=== PATIENT | female | born 1985 | race Caucasian/White ===

== ENCOUNTER 2022-10-26 01:36 | Inpatient (IN) | payer BC, MEDICAID, SELFPAY ==
[2022-10-26] VITALS (24 sets, daily range): BP systolic 113–176; BP diastolic 47–108; PULSE 59–91; RESP 16–18; TEMP 36.3–36.8; O2SAT 97–99; BMI 20.4; BMI 21.2
--- NOTE | 2022-10-26 01:46 | ED.GENADULT ---
HPI - General Adult General Chief complaint: Post OB/Post- Complication Stated complaint: Post elevated bp Time Seen by Provider: 10/26/22 01:45 History of Present Illness HPI narrative: Pt aox4, ABCs intact. Patient arrives with significant other for evaluation of high blood pressure. Patient is 7 days from a vaginal delivery of her second child. Patient c/o headache and high blood pressure tonight. Patient currently taking labetalol. 37-year-old woman presenting to the emergency department with concern of rather high blood pressure. induced with this last at 39 weeks with preeclampsia. Has been taking labetalol. 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 Does have slight headache. 200 mg of labetalol was taken 3 hours prior to arrival here. No visual changes. No chest pain or shortness of breath. Related Data Home Medications Medication Instructions Recorded Confirmed labetalol 200 mg tablet 200 mg PO .8 10/26/22 10/26/22 Allergies Allergy/AdvReac Type Severity Reaction Status Date / Time doxycycline Allergy Verified 10/27/22 07:18 Review of Systems Status of ROS: Reports: 6 or more systems reviewed and unremarkable except as noted in History and below PFSH [facility] Social History What is your current living situation?: I presently have a place to live Problems where you live: no known problems In the past 12 months, utilities in danger of being shut off: no In the past 12 mos, have been you worried that your food would run out before you had money to buy more?: never true In the past 12 mos, the food you bought just didn't last and you didn't have money to buy more?: never true Smoking Status: Never smoker How often does anyone, including family, friends and others, physically hurt you: never How often does anyone, including family, friends and others, insult or talk down to you: never How often does anyone, including family, friends and others, threaten you with harm: never How often does anyone, including family, friends and others, scream or curse at you: never Exam Narrative: Exam Narrative: Very pleasant. NAD. Breathing easily. Mentally clear. Lungs clear. Heart in mildly elevated rate in a regular rhythm. No peripheral edema. 2+ DTRs No clonus Abdomen soft and not particularly tender. Accompanied by significant other and . Const: Vital Signs, click to edit/add: Vital Signs - 24 hr 10/26/22 01:41 10/26/22 02:34 Temperature 98.3 F Pulse Rate [Pulse Oximeter] 91 Respiratory Rate 16 Blood Pressure [Ri ght Upper Arm] 170/99 H 176/105 H Pulse Oximetry 99 Oxygen Delivery Me thod Room Air Documenting provider has reviewed patient's vital signs: yes Course Vital Signs Vital signs: Initial Vital Signs Temperature 98.3 F 10/26/22 01:41 Temperature Source Temporal Artery Scan 10/26/22 01:41 Pulse Rate 91 10/26/22 01:41 Pulse Rhythm Regular 10/26/22 01:41 Respiratory Rate 16 10/26/22 01:41 Blood Pressure 170/99 H 10/26/22 01:41 Blood Pressure Mean 122 H 10/26/22 01:41 Pulse Oximetry 99 10/26/22 01:41 Oxygen Delivery Method Room Air 10/26/22 01:41 Vital Signs Temperature 98.3 F 10/26/22 01:41 Pulse Rate 91 10/26/22 01:41 Respiratory Rate 16 10/26/22 01:41 Blood Pressure 170/99 H 10/26/22 01:41 Pulse Oximetry 99 10/26/22 01:41 Oxygen Delivery Method Room Air 10/26/22 01:41 Temperature 97.4 F L 10/29/22 07:47 Pulse Rate 73 10/29/22 07:47 Respiratory Rate 17 10/29/22 07:47 Blood Pressure 142/87 H 10/29/22 08:40 Pulse Oximetry 97 10/29/22 00:10 Oxygen Delivery Method Room Air 10/29/22 04:00 Medical Decision Making MDM Narrative Medical decision making narrative: Rechecking blood pressures confirmed. Seemed actually be escalating. 170s over 90s. Labs drawn for preeclampsia and ordered for 20 mg of labetalol IV. Called to Ob discuss this case. OB nursing already arrived to assist and anticipating transfer shortly to OB for admission and cares. Will be initiating magnesium infusion per protocols as well. Lab Data Lab results reviewed: Yes I reviewed the patient's lab results Labs: Lab Results 10/26/22 10/26/22 Range/Units 02:35 03:05 WBC 6.53 (4.50-11.00) K/uL RBC 3.63 L (4.00-5.20) m/uL Hgb 10.6 L (12.0-16.0) gm/dL Hct 32.5 L (33.0-51.0) % MCV 90 (80-100) fL MCH 29 (26-34) pg MCHC 33 (32-36) gm/dL RDW Coeff of [place] 17.1 H (11.5-15.5) % Plt Count 149 (140-440) K/uL Neut % (Auto) 70.6 (42.0-72.0) % Lymph % (Auto) 19.9 L (20-44) % [place] % (Auto) 6.3 (0.0-11.0) % Eos % (Auto) 1.2 (0.0-7.0) % Baso % (Auto) 0.8 (0.0-3.0) % Neut # (Auto) 4.61 (1.7-7.0) K/uL Lymph # (Auto) 1.30 (0.90-2.90) K/uL [place] # (Auto) 0.40 (0.00-0.90) K/UL Eos # (Auto) 0.08 (0.00-0.50) K/uL Baso # (Auto) 0.05 (0.00-0.30) K/uL Abs Immat Gran (auto) 0.08 (0.00-0.30) K/uL Imm/Tot Granulo (auto) 1.2 % Sodium 138 (135-149) mmol/L Potassium 3.7 (3.6-5.1) mmol/L Chloride 110 (96-114) mmol/L Carbon Dioxide 22 (20-32) mmol/L Anion Gap 6 L (7-15) mEq/L BUN 16 (5-24) mg/dL Creatinine 0.8 (0.5-1.5) mg/dL Estimated Creat Clear 88.76 Estimated GFR 97 ml/min Glucose 90 (60-115) mg/dL Uric Acid 3.3 (2.2-8.4) mg/dL Calcium 8.0 L (8.4-10.6) mg/dL Magnesium 2.2 (1.5-2.6) mg/dL Total Bilirubin 0.3 (0.1-1.5) mg/dL Direct Bilirubin 0.0 (0.0-0.5) mg/dL AST 74 H (12-35) U/L ALT 102 H (4-35) U/L Alkaline Phosphatase 103 (40-150) U/L Lactate Dehydrogenase 218 (120-246) U/L Total Protein 6.1 (6.0-8.3) g/dL Albumin 3.3 (3.3-5.0) g/dL Urine Color Yellow (Yellow) Urine Appearance Cloudy A (Clear) Urine pH 7.5 (5.0-8.5) Ur Specific [place] 1.020 (1.000-1.030) Urine Protein 1+ A (Negative) Urine Glucose (UA) Negative (Negative) Urine Ketones Negative (Negative) Urine Blood 3+ A (Negative) Urine Nitrite Negative (Negative) Urine Bilirubin Negative (Negative) Urine Urobilinogen 1.0 (0.2-1.0) Ur Leukocyte Esterase Negative (Negative) Urine RBC 10-25 A (0-2) Urine WBC 0-2 (0-5) Ur Squamous Epith Cells Few (None-Few) Urine Bacteria None (None) Discharge Plan Discharge Clinical Impression: Pre-eclampsia Patient Disposition: Admit to OB Condition: Stable
[2022-10-26 02:43] LABS: Appearance Urine Cloudy (Clear); Bilirubin Urine Negative (Negative); Blood Urine 3+ (Negative); Color Urine Yellow (Yellow); Glucose Urine Negative (Negative); Ketones Urine Negative (Negative); Leukocyte Esterase Urine Negative (Negative); Nitrite Urine Negative (Negative); Protein Urine 1+ (Negative); pH Urine 7.5 (5.0-8.5)
[2022-10-26 02:52] LABS: Squamous Epithelial Cell Urine Few (None-Few); WBC Urine 0-2 (0-5)
[2022-10-26] MEDS: LABETALOL HCL 5 MG/ML inj 20 MG IVP (03:12)
[2022-10-26] MEDS: LACTATED RINGERS 1000 ML 1,000 ML 75 ML IV ×2 (03:12→16:27)
[2022-10-26 03:13] LABS: Basophils Absolute Auto 0.05 K/uL (0.00-0.30); Basophils Percent Auto 0.8 % (0.0-3.0); Eosinophils Absolute Auto 0.08 K/uL (0.00-0.50); Eosinophils Percent Auto 1.2 % (0.0-7.0); Hematocrit 32.5 % (33.0-51.0); Hemoglobin* 10.6 gm/dL (12.0-16.0); Immature Granulocytes Abs Auto 0.08 K/uL (0.00-0.30); Immature Granulocytes Pct Auto 1.2 %; Lymphocytes Percent Auto 19.9 % (20-44); Mean Corpuscular HGB Conc 33 gm/dL (32-36); Mean Corpuscular Hemoglobin 29 pg (26-34); Mean Corpuscular Volume 90 fL (80-100); Monocytes Percent Auto 6.3 % (0.0-11.0); Neutrophils Absolute Auto 4.61 K/uL (1.7-7.0); Neutrophils Percent Auto 70.6 % (42.0-72.0); Platelet Count* 149 K/uL (140-440); RDW Coefficient of Variation % 17.1 % (11.5-15.5); Red Blood Count 3.63 m/uL (4.00-5.20); White Blood Count* 6.53 K/uL (4.50-11.00)
[2022-10-26 03:15] LABS: Slide Review Reflex No
--- NOTE | 2022-10-26 03:17 | ED.NURSE ---
OB RNs to ED to assist with medication administraion as well as IV placement. Patient transferred to [facility] for admission
[2022-10-26 03:27] LABS: Albumin* 3.3 g/dL (3.3-5.0); Chloride* 110 mmol/L (96-114)
[2022-10-26 03:28] LABS: Potassium* 3.7 mmol/L (3.6-5.1); Sodium* 138 mmol/L (135-149)
[2022-10-26 03:29] LABS: Lactate Dehydrogenase* 218 U/L (120-246); Uric Acid* 3.3 mg/dL (2.2-8.4)
[2022-10-26 03:30] LABS: Anion Gap 6 mEq/L (7-15); Aspartate Amino Transferase* 74 U/L (12-35); Bilirubin Total* 0.3 mg/dL (0.1-1.5); Blood Urea Nitrogen* 16 mg/dL (5-24); Carbon Dioxide* 22 mmol/L (20-32); Creatinine* 0.8 mg/dL (0.5-1.5); Est. Creatinine Clearance* 88.76; Estimated Glomerular Filt Rate 97 ml/min; Magnesium* 2.2 mg/dL (1.5-2.6); Total Protein* 6.1 g/dL (6.0-8.3)
[2022-10-26 03:31] LABS: Alanine Aminotransferase* 102 U/L (4-35); Alkaline Phosphatase* 103 U/L (40-150); Glucose* 90 mg/dL (60-115)
[2022-10-26] MEDS: MAGNESIUM IV 4 GM/100 ML PIGGYBACK IVPB (03:35)
[2022-10-26 08:51] LABS: Hematocrit 37.1 % (33.0-51.0); Hemoglobin* 11.9 gm/dL (12.0-16.0); Mean Corpuscular HGB Conc 32 gm/dL (32-36); Mean Corpuscular Hemoglobin 29 pg (26-34); Mean Corpuscular Volume 89 fL (80-100); Platelet Count* 186 K/uL (140-440); Red Blood Count 4.16 m/uL (4.00-5.20); White Blood Count* 6.33 K/uL (4.50-11.00)
[2022-10-26 08:53] LABS: Slide Review Reflex No
--- NOTE | 2022-10-26 08:56 | P.OBCN_ITS ---
OB - CN: HPI Date of Consult Time Seen by Provider: 08:30 Date Seen: 10/26/22 Patient: Other Consult date: 10/26/22 Requesting Physician: Maria Del Rosario Pearce MD Primary Care Provider: Not a Local Provider Consult Narrative Narrative: Jaclyn is a 37 year old G 5 P 5005 s/p and is currently PPD#7 who was admitted to the Center on 10/26/22 for severe ranging blood pressure. She reports having induction of labor at [place] at 39 weeks. Prior to her induction of labor, she has never had any blood pressure issues. She reports that during her labor they were constantly trying to control my blood pressure. She does not know if she's received IV antihypertensive but know she did not receive magnesium sulfate. On her discharge summary (which is limited), the discharge instruction was for her to take Labetalol 300 mg Q8H but her eRx was for Labetalol 200 mg Q8H. She has never heard of the diagnosis of pre- eclampsia. She called her facility yesterday due to high blood pressure readings at home (140-160s/90s), headache, and overall not feeling well. She was told to seek care of the ED. Upon arrival to our ED, she had severe ranging blood pressures 160-170s/90s-110s. She received IV antihypertensive and magnesium per pre- eclampsia with severe features protocol and admitted to L&D. Overnight patient had felt relief of her headache with BP managment and Tylenol. She does endorse feeling weird and a little out of it on magnesium. Her pain is well controlled on oral pain medications. She is tolerating a regular diet. She is passing flatus. She is ambulating without difficulty. Lochia is scant. She is urinating without guthrie. Currently, patient denies chest pain, SOB, n/v, RUQ pain, vision changes, dizziness. She has a mild headache that she attributes to fatigue and the magnesium but not like the she originally had. Upon review of records from [place]: * Pt presented at 39w1d for elective IOL. BP on presentation 161/96. * She had two more severe ranging BP at 1914 on 10.19.22 and Nifedipine 10 mg PO was given. * Nifedipine XL 30 mg QD was started , this was increased to 60 mg and 300 mg of labetalol TID throughout her stay to achieve <140/90 * Her platelets were noted to be low on admission labs and willi at 101 on final lab draw * Overall, she was diagnosed with mild pre-eclampsia and did not receive magnesium sulfate. She was discharged home with labetalol 200 mg TID. History History 5 Elective abortions Para 5 Spontaneous abortions Hx # Term Pregnancies Ectopic pregnancies Hx # Pregnancies Multiple births Number of Living Children 5 PFSH PFSH Social History What is your current living situation?: I presently have a place to live Problems where you live: no known problems In the past 12 months, utilities in danger of being shut off: no In the past 12 mos, have been you worried that your food would run out before you had money to buy more?: never true In the past 12 mos, the food you bought just didn't last and you didn't have money to buy more?: never true Smoking Status: Never smoker How often does anyone, including family, friends and others, physically hurt you : never How often does anyone, including family, friends and others, insult or talk down to you: never How often does anyone, including family, friends and others, threaten you with harm: never How often does anyone, including family, friends and others, scream or curse at you: never Meds Home Medications and Allergies Home Medications Medication Instructions Recorded Confirmed Type labetalol 200 mg tablet 200 mg PO .8 10/26/22 10/26/22 History Allergies Allergy/AdvReac Type Severity Reaction Status Date / Time doxycycline Allergy Verified 10/26/22 01:46 OB - H&P: Exam Physical Exam: Vital signs: Temp Pulse Resp BP Pulse Ox O2 Del Method 97.9 F 71 16 137/80 98 Room Air 10/26/22 07:59 10/26/22 07:59 10/26/22 07:59 10/26/22 07:59 10/26/22 07:59 10/26/22 07:59 Narrative: Physical exam: General: No acute distress. Caring for Psych: Alert and oriented x3, full affect HEENT: Normocephalic, atraumatic Neck: No cervical adenopathy, no thyromegaly Heart: Regular rate and rhythm, no murmur rub or gallop Lungs: Clear to auscultation bilaterally Abdomen: Normoactive bowel sounds, soft, no tenderness, rebound, or guarding, no masses, no hepatosplenomegaly Skin: No lesions or rashes Breasts: no nodules or masses, no nipple discharge, no axillary adenopathy Lower extremities: 1+ lower extremity edema bilaterally Pelvic exam: Deferred. Patient reports scant lochia OB - Results Labs Labs: Short CBC 10/26/22 10/26/22 Range/Units 03:05 08:44 WBC 6.53 6.33 (4.50-11.00) K/uL Hgb 10.6 L 11.9 L (12.0-16.0) gm/dL Hct 32.5 L 37.1 (33.0-51.0) % Plt Count 149 186 (140-440) K/uL BMP 10/26/22 03:05 Sodium 138 Potassium 3.7 Chloride 110 Carbon Dioxide 22 BUN 16 Creatinine 0.8 Glucose 90 Calcium 8.0 L Liver Function 10/26/22 Range/Units 03:05 Total Bilirubin 0.3 (0.1-1.5) mg/dL Direct Bilirubin 0.0 (0.0-0.5) mg/dL AST 74 H (12-35) U/L ALT 102 H (4-35) U/L Alkaline Phosphatase 103 (40-150) U/L Albumin 3.3 (3.3-5.0) g/dL Urine 10/26/22 Range/Units 02:35 Urine Color Yellow (Yellow) Urine Appearance Cloudy A (Clear) Urine pH 7.5 (5.0-8.5) Ur Specific [place] 1.020 (1.000-1.030) Urine Protein 1+ A (Negative) Urine Glucose (UA) Negative (Negative) OB - CN: A/P Assessment and Plan (1) Pre-eclampsia, severe, delivered: Status: Acute Plan Pre-Eclampsia with SF * Based on severe ranging blood pressures requiring IV antihypertensive and ALT/AST 2x upper limit of normal. * BPs 160-170s/90-100s on admission. This AM 140s/80-90s * Symptoms: mild headache * Magnesium: on Magnesium for seizure ppx - will continue for 24 hours and reassess * IV antihypertensives: received labetalol 20 mg IV on admission * PO antihypertensive: Labetalol 200 mg Q8H, titrate PRN * Pre-eclampsia labs on 10/26/2022: Hgb 10.6 Plt 149 Cr 0.8 ALT 74 AST 102 LDH 218 * UOP: 2.24cc/kg/hr
[2022-10-26 09:20] LABS: Aspartate Amino Transferase* 80 U/L (12-35); Creatinine* 0.7 mg/dL (0.5-1.5); Estimated Glomerular Filt Rate 113 ml/min
[2022-10-26 09:21] LABS: Alanine Aminotransferase* 115 U/L (4-35); Blood Urea Nitrogen* 13 mg/dL (5-24)
[2022-10-26] MEDS: LABETALOL HCL 100 MG TABLET 200 MG PO ×2 (09:29→17:34)
[2022-10-26] MEDS: IBUPROFEN 600 MG TABLET PO ×2 (11:56→17:33)
[2022-10-26 15:40] LABS: Hematocrit 35.9 % (33.0-51.0); Hemoglobin* 11.8 gm/dL (12.0-16.0); Mean Corpuscular HGB Conc 33 gm/dL (32-36); Mean Corpuscular Hemoglobin 29 pg (26-34); Mean Corpuscular Volume 88 fL (80-100); Platelet Count* 190 K/uL (140-440); Red Blood Count 4.06 m/uL (4.00-5.20); White Blood Count* 6.98 K/uL (4.50-11.00)
[2022-10-26 15:43] LABS: Slide Review Reflex No
[2022-10-26 15:59] LABS: Alanine Aminotransferase* 101 U/L (4-35); Aspartate Amino Transferase* 74 U/L (12-35); Blood Urea Nitrogen* 14 mg/dL (5-24); Creatinine* 0.8 mg/dL (0.5-1.5); Est. Creatinine Clearance* 92.31; Estimated Glomerular Filt Rate 97 ml/min
[2022-10-26 21:05] LABS: Hematocrit 35.3 % (33.0-51.0); Hemoglobin* 11.6 gm/dL (12.0-16.0); Mean Corpuscular HGB Conc 33 gm/dL (32-36); Mean Corpuscular Hemoglobin 29 pg (26-34); Mean Corpuscular Volume 88 fL (80-100); Platelet Count* 192 K/uL (140-440); Red Blood Count 4.01 m/uL (4.00-5.20); White Blood Count* 5.95 K/uL (4.50-11.00)
[2022-10-26 21:08] LABS: Slide Review Reflex No
[2022-10-26 21:17] LABS: Alanine Aminotransferase* 91 U/L (4-35); Aspartate Amino Transferase* 69 U/L (12-35); Creatinine* 0.8 mg/dL (0.5-1.5); Est. Creatinine Clearance* 92.31; Estimated Glomerular Filt Rate 97 ml/min
[2022-10-26 21:18] LABS: Blood Urea Nitrogen* 15 mg/dL (5-24)
[2022-10-26] MEDS: PROCHLORPERAZINE 10 MG TABLET 5 MG PO (22:48)
[2022-10-27] VITALS (7 sets, daily range): BP systolic 102–130; BP diastolic 64–82; PULSE 64–76; RESP 14–16; TEMP 36.6–36.8; O2SAT 96–98
[2022-10-27] MEDS: IBUPROFEN 600 MG TABLET PO ×4 (00:35→21:32)
[2022-10-27] MEDS: LABETALOL HCL 100 MG TABLET 200 MG PO ×3 (00:35→16:59)
[2022-10-27 03:29] LABS: Alanine Aminotransferase* 88 U/L (4-35); Aspartate Amino Transferase* 65 U/L (12-35); Blood Urea Nitrogen* 15 mg/dL (5-24); Creatinine* 0.8 mg/dL (0.5-1.5); Est. Creatinine Clearance* 92.31; Estimated Glomerular Filt Rate 97 ml/min
[2022-10-27] MEDS: ASPIRIN/ACETAMINOPHEN/CAFFEINE 1 TABLET 1 TAB PO (06:56)
--- NOTE | 2022-10-27 07:56 | PM.OBPNVD1 ---
OB - PN:Subj Subjective Date Seen: 10/27/22 Patient comments OB post-: no complaints, pain well controlled, tolerating diet and flatus present Natalia status: and doing well Natalia feeding status: exclusively Narrative: Jaclyn is doing well today. The IV magnesium was discontinued this morning around 0400. Her blood pressures have been 102's/70-80's in the last 12 hours. she has a headache but it developed after admit and she feels that it is a normal migraine for her. She did take an Excedrin this morning and added some caffeine. This and time is usually what resolves her headaches. She denies RUQ pain, visual changes or other signs or symptoms. Discussed that it is advised to stay for 24 hours after the magnesium is discontinued to continue to monitor blood pressures and adjust medication doses if necessary. She is ok with this plan of care. She denies other questions or concerns at this time. Her partner and baby are in the room with her. She is and that is going well. She has a scant amount of rubra lochia and is passing gas. She has had a bowel movement since deliver but not since re-admission. OB - PN: Obj Exam Physical Exam: Vital signs: Temp Pulse Resp BP Pulse Ox O2 Del Method 97.8 F 65 16 128/82 97 Room Air 10/27/22 07:30 10/27/22 07:30 10/27/22 07:30 10/27/22 07:30 10/27/22 07:30 10/27/22 07:30 Constitutional: Constitutional: no acute distress Routine Neck Exam: Neck: Present full ROM Routine Respiratory Exam: Respiratory: Present CTA bilaterally Routine Cardiovascular Exam: Cardiovascular: Present RRR Routine Abdominal Exam: Fundus: Present firm Routine Exam: Patient deferred: external exam Routine Extremities Exam: Extremities: Present full ROM Routine Neurological Exam: Neurological: Present alert and oriented X3 Routine Psychiatric Exam: Psychiatric: Present normal affect OB - PN: Obj Data Labs Labs: Laboratory Results - last 24 hr 10/26/22 10/26/22 10/26/22 08:44 15:22 20:58 WBC 6.33 6.98 5.95 RBC 4.16 4.06 4.01 Hgb 11.9 L 11.8 L 11.6 L Hct 37.1 35.9 35.3 MCV 89 88 88 MCH 29 29 29 MCHC 32 33 33 Plt Count 186 190 192 BUN 13 14 15 Creatinine 0.7 0.8 0.8 Estimated Creat Clear 105.50 92.31 92.31 Estimated GFR 113 97 97 AST 80 H 74 H 69 H ALT 115 H 101 H 91 H 10/27/22 03:05 WBC RBC Hgb Hct MCV MCH MCHC Plt Count BUN 15 Creatinine 0.8 Estimated Creat Clear 92.31 Estimated GFR 97 AST 65 H ALT 88 H OB - PN: A/P Delivery Assessment and Plan (1) Pre-eclampsia, severe, delivered: Status: Acute (2) Lactating mother: Status: Acute Plan Comments: Magnesium was discontinued. Continue to monitor Blood pressures. Adjust Labetalol dose PRN. Repeat labs tomorrow AM.
[2022-10-28] VITALS (30 sets, daily range): BP systolic 109–177; BP diastolic 67–96; PULSE 59–88; RESP 16–18; TEMP 36.6–36.9; O2SAT 96–98
--- NOTE | 2022-10-28 | CRLHL7_ITS ---
For Patients: As a result of the Century Cures Act, medical imaging exams and procedure reports are released immediately into your electronic medical record. You may view this report before your referring provider. If you have questions, please contact your health care provider. INDICATION: Slurring, lisp, code stroke. Symptoms less than 6 hr TECHNIQUE: CT head without contrast. COMPARISON: None. FINDINGS: CSF spaces: Within normal limits for age. Brain parenchyma and extra-axial spaces: The sparks-white differentiation is normal. No sign of intracranial hemorrhage, or midline shift. No extra-axial fluid collection. Ventricles normal in size and configuration. Skull base and calvarium: The visualized paranasal sinuses and mastoid air cells demonstrate no acute or significant findings. The visualized orbits are grossly unremarkable. No skull fractures. IMPRESSION: Unremarkable noncontrast head CT. Specifically, no evidence of intracranial hemorrhage. Findings discussed with Dr. Segundo at 8:12 a.m. Please note that all CT scans at this facility use dose modulation, iterative reconstruction, and/or weight-based dosing when appropriate to reduce radiation dose to as low as reasonably achievable. Dictated by Sean Roberts MD @ 10/28/2022 8:15:12 AM (Electronically Signed)
--- NOTE | 2022-10-28 | CRLHL7_ITS ---
For Patients: As a result of the Century Cures Act, medical imaging exams and procedure reports are released immediately into your electronic medical record. You may view this report before your referring provider. If you have questions, please contact your health care provider. INDICATION: Slurred speech. . TECHNIQUE: 3D [id number] magnetic resonance angiography of the intracranial [place] of [place] arteries. FINDINGS: Distal internal carotid arteries and basilar artery are widely patent. The anterior middle and posterior cerebral arteries their proximal branches are unremarkable. No large vessel occlusion. No evidence of aneurysm or AVM. IMPRESSION: Negative MRA examination of the proximal cerebral arteries. Dictated by Isidoro Modi MD @ 10/28/2022 2:21:17 PM (Electronically Signed)
[2022-10-28] MEDS: LABETALOL HCL 100 MG TABLET 200 MG PO ×2 (00:35→07:46)
[2022-10-28] MEDS: IBUPROFEN 600 MG TABLET PO ×3 (06:21→20:39)
[2022-10-28 07:05] LABS: Hematocrit 37.4 % (33.0-51.0); Hemoglobin* 11.9 gm/dL (12.0-16.0); Mean Corpuscular HGB Conc 32 gm/dL (32-36); Mean Corpuscular Hemoglobin 29 pg (26-34); Mean Corpuscular Volume 91 fL (80-100); Platelet Count* 198 K/uL (140-440); Red Blood Count 4.13 m/uL (4.00-5.20); White Blood Count* 5.98 K/uL (4.50-11.00)
[2022-10-28 07:08] LABS: Slide Review Reflex No
[2022-10-28 07:23] LABS: Albumin* 3.6 g/dL (3.3-5.0); Chloride* 109 mmol/L (96-114); Potassium* 3.6 mmol/L (3.6-5.1); Sodium* 138 mmol/L (135-149)
[2022-10-28 07:25] LABS: Anion Gap 9 mEq/L (7-15); Aspartate Amino Transferase* 49 U/L (12-35); Bilirubin Total* 0.3 mg/dL (0.1-1.5); Carbon Dioxide* 20 mmol/L (20-32); Creatinine* 0.8 mg/dL (0.5-1.5); Est. Creatinine Clearance* 90.46; Estimated Glomerular Filt Rate 97 ml/min; Total Protein* 6.5 g/dL (6.0-8.3)
[2022-10-28 07:26] LABS: Alanine Aminotransferase* 71 U/L (4-35); Alkaline Phosphatase* 96 U/L (40-150); Blood Urea Nitrogen* 16 mg/dL (5-24); Calcium* 6.8 mg/dL (8.4-10.6); Glucose* 83 mg/dL (60-115)
[2022-10-28 08:07] LABS: Magnesium* 2.6 mg/dL (1.5-2.6)
--- NOTE | 2022-10-28 08:22 | CRLHL7_ITS ---
For Patients: As a result of the Century Cures Act, medical imaging exams and procedure reports are released immediately into your electronic medical record. You may view this report before your referring provider. If you have questions, please contact your health care provider. INDICATION: Scot[place] and tinnitus. . TECHNIQUE: Sagittal T1 axial FLAIR T2 diffusion-weighted and susceptibility weighted images of the brain are obtained. [id number] MR venogram images of the brain are also obtained. FINDINGS: The lateral 3rd and 4th ventricles are normal in size and shape there is no evidence of acute ischemic infarction. There are no areas of diffusion restriction. There is no evidence of intracranial hemorrhage there is no focal brain edema no white matter signal abnormalities are seen. The brainstem and cerebellum appear normal. The reconstructed 3D images of the MR venogram are degraded by this restriction artifacts. The 2D source images show no evidence of dural venous sinus thrombosis. There is asymmetry in the orbital globes the left side globe has a non spherical shape with some deformity of the retinal surface of uncertain significance. Minor mucosal thickening in the left maxillary sinus the other paranasal sinuses and skullbase are unremarkable. IMPRESSION: 1. Negative MRI brain. No evidence of acute ischemic infarction, intracranial hemorrhage, mass or cerebral edema. 2. Limited MR venogram images without contrast shows no convincing evidence of dural venous sinus thrombosis. 3. Abnormal shape left ocular globe. Dictated by Isidoro Modi MD @ 10/28/2022 2:27:30 PM (Electronically Signed)
--- NOTE | 2022-10-28 08:26 | P.OBPN_ITS ---
OB - PN:Subj Subjective Time Seen by Provider: : Date Seen: 10/28/22 Interval history: Jaclyn is a 37 year old G 5 P 5005 s/p 9 days ago. She delivered at [place], and reports they were trying to manage her blood pressures during her stay. She was not placed on magnesium sulfate at that time. She was readmitted here on 10/26/22 for severe preeclampsia and placed on magnesium sulfate. The magnesium has been off for over 24 hours at this time. Her blood pressures yesterday were WNL on the current dose of labetalol. This morning, around 0600, she complained to the nurses that on her left side she was having tinnitus, and amplified sound. She also reports that sounds are echo-y. She complained at that time that she also felt some facial numbness, and that to her she sounded as though she was lisping when she talked. Per the RN at that time, no neuro deficits were noted - no facial droop, no change noted with talking. They consulted Dr. Pearce at that time who recommended a neuro exam for stroke, and a CT if symptoms persisted. She also requested a magnesium level check and electrolytes. Jaclny did have vision changes (sparkles at the edge of her vision) and a headache yesterday. She does admit that she gets migraines with auras a few times a year, and that her aura is sparkles, though they usually last longer. At this time the headache has mostly resolved - is noted to be a 1-2 on the pain scale and denies any vision changes. After consulting with Dr. Pearce, she requested a full neuro assessment and CT be done. Code stroke called for a full assessment. Preeclampsia labs noted to be trending down. Magnesium level still pending. Calcium noted to be low. Dr. Pearce aware. BPs also noted to be trending up this AM, 140s/90s. Decision made to proceed with labetalol early, and monitor BPs. BPs 150-160/90s about 20 minutes after dose given, but pt had just returned from CT. Decision made to monitor and repeat in about 20 minutes. RN aware to notify Dr. Pearce if they remain elevated even after labetalol dose. CT results back, and Dr. Pearce reviewed. Dr. Pearce also consulted with the neurologist. Decision made to proceed with MRI/MRA/MRV. Pt did state upon returning from CT, she does feel as though the right side is now also starting to have amplified sound, though not to the extent of the left. She does also admit to a history of hearing loss in her right ear a few months after the of her last child. It was thought to be from a virus, and she did regain almost full hearing in that ear. ? Narrative: The pain is well controlled with current medications.? She is breast feeding and reports things are going well.? the patient has done well.?? She has remained afebrile, but BPs are now elevated again.? Has a good appetite, is tolerating a general diet.? She is voiding without difficulty.? She is passing gas and has had a bowel movement.? She is ambulating and denies any dizziness.? Has Small amount of rubra lochia.? OB - PN: Obj Exam Physical Exam: Vital signs: Temp Pulse Resp BP Pulse Ox O2 Del Method 98.4 F 62 16 146/88 H 98 Room Air 10/28/22 05:41 10/28/22 06:15 10/28/22 05:41 10/28/22 06:15 10/28/22 05:41 10/28/22 05:41 Narrative: GENERAL APPEARANCE:? normal affect, alert, no distress? MOOD:? appropriate? HEENT: normocephalic, neck supple, full ROM? CHEST:? Symmetrical chest wall movement.? Normal respiratory effort.? Clear to auscultation ? HEART:? regular rate and rhythm? ABDOMEN:? soft, non-tender. Uterine fundus is firm, 4 below Umbilicus, Midline and is appropriate for the stage of recovery.? Bowel sounds present.? PERINEUM:? deferred. Denies any laceration, PP day 9. EXTREMITIES:? normal and no edema? Routine Extremities Exam: Extremities: Present full ROM and normal inspection Routine Neurological Exam: Neurological: Present alert, oriented X3, moving all extremities, normal tone and normal speech; Absent facial asymmetry Comments: Motor strength equal and WNL on upper and lower extremities. Routine Psychiatric Exam: Psychiatric: Present normal affect, normal thought process and cooperative OB - PN: Obj Data Labs Labs: Laboratory Results - last 24 hr 10/28/22 10/28/22 06:58 07:39 WBC 5.98 RBC 4.13 Hgb 11.9 L Hct 37.4 MCV 91 MCH 29 MCHC 32 Plt Count 198 Sodium 138 Potassium 3.6 Chloride 109 Carbon Dioxide 20 Anion Gap 9 BUN 16 Creatinine 0.8 Estimated Creat Clear 90.46 Estimated GFR 97 Glucose 83 Calcium 6.8 L Magnesium 2.6 Total Bilirubin 0.3 AST 49 H ALT 71 H Alkaline Phosphatase 96 Total Protein 6.5 Albumin 3.6 Lab Acknowledgement Test Added OB - PN: A/P Delivery Assessment and Plan (1) Pre-eclampsia, severe, delivered: Status: Acute (2) Lactating mother: Status: Acute Plan day: 9 Plan: routine care Comments: G 5 P 5 status post uncomplicated NVD? ?? 1.? Continue route PP cares? 2.? .? May see if desired? 3. Severe preeclampsia -magnesium discontinued over 24 hours ago -currently on labetalol -BPs now elevated again this AM. Labetalol dose given early. Will continue to monitor and notify Dr. Pearce if they remain elevated 4. R/O stroke r/t changes in hearing, primarily left side -CT done, MRI/MRA/MRV ordered -Dr. Pearce consulted with neurology -RN to monitor neuro closely at this time -magnesium level pending to r/o mag toxicity
[2022-10-28] MEDS: LABETALOL HCL 100 MG TABLET PO (09:08)
--- NOTE | 2022-10-28 09:32 | PM.OBPNVD1 ---
OB - PN:Subj Subjective Time Seen by Provider: 07:30 Date Seen: 10/28/22 Interval history: Jaclyn is a 37 year old G 5 P 5005 s/p 9 days ago. She delivered at [place], and reports they were trying to manage her blood pressures during her stay. She was not placed on magnesium sulfate at that time. She was readmitted here on 10/26/22 for severe preeclampsia and placed on magnesium sulfate. The magnesium has been off for over 24 hours at this time. Her blood pressures yesterday were WNL on the current dose of labetalol. This morning, around 0600, she complained to the nurses that on her left side she was having tinnitus, and amplified sound. She also reports that sounds are echo-y. She complained at that time that she also felt some facial numbness, and that to her she sounded as though she was lisping when she talked. Per the RN at that time, no neuro deficits were noted - no facial droop, no change noted with talking. They consulted Dr. Pearce at that time who recommended a neuro exam for stroke, and a CT if symptoms persisted. She also requested a magnesium level check and electrolytes. Jaclyn did have vision changes (sparkles at the edge of her vision) and a headache yesterday. She does admit that she gets migraines with auras a few times a year, and that her aura is sparkles, though they usually last longer. At this time the headache has mostly resolved - is noted to be a 1-2 on the pain scale and denies any vision changes. After consulting with Dr. Pearce, she requested a full neuro assessment and CT be done. Code stroke called for a full assessment. Preeclampsia labs noted to be trending down. Magnesium level still pending. Calcium noted to be low. Dr. Pearce aware. BPs also noted to be trending up this AM, 140s/90s. Decision made to proceed with labetalol early, and monitor BPs. BPs 150-160/90s about 20 minutes after dose given, but pt had just returned from CT. Decision made to monitor and repeat in about 20 minutes. RN aware to notify Dr. Pearce if they remain elevated even after labetalol dose. CT results back, and Dr. Pearce reviewed. Dr. Pearce also consulted with the neurologist. Decision made to proceed with MRI/MRA/MRV. Pt did state upon returning from CT, she does feel as though the right side is now also starting to have amplified sound, though not to the extent of the left. She does also admit to a history of hearing loss in her right ear a few months after the of her last child. It was thought to be from a virus, and she did regain almost full hearing in that ear. ? Narrative: Paged by RN at 0630 due to concerns of continued neurological symptoms that started at 0600. Her symptoms consists of sudden onset of left sided severe tinnitus and ongoing scotoma. I was told her stroke assessment was benign. I was under the impression that she was evaluated by a member of the stroke team. I recommend a CMP to make sure her electrolytes are normal and if she has persistent symptoms, we might have to order a head CT to rule out other intracranial processes. I was unable to find documentation of her stroke assessment and asked AM charge nurse. I was informed it was not stroke assessment but just a neuro physical exam and the patient had not been examined by MD overnight. Spoke with GRECIA Rodriguez who was rounding on patient and she reported that patient is still complaining of left sided tinnitus and feels that it's spreading to her right side. Patient still complains of 6/10 migraine. She reports having migraine with aura but not auditory, it's usually visual. I requested a neuro assessment (possibly by ED physician or consult with hospitalist) and CT head. Patient had a stroke alert called and I was informed that was the only way to have a full assessment and CT head. Upon examining the patient, I have low suspicion for a stroke as she doesn't have focal deficits. I did speak the the neurologist [employer] who agreed with my assessment but requested an MRI/MRA/MRV. OB - PN: Obj Exam Physical Exam: Vital signs: Temp Pulse Resp BP Pulse Ox O2 Del Method 97.8 F 70 18 131/83 98 Room Air 10/28/22 07:45 10/28/22 09:15 10/28/22 09:15 10/28/22 09:15 10/28/22 09:15 10/28/22 09:15 Narrative: Physical exam: General: No acute distress. Comfortable in bed. Psych: Alert and oriented x3, full affect HEENT: Normocephalic, atraumatic, oropharynx benign Neck: No cervical adenopathy, no thyromegaly Heart: Regular rate and rhythm, no murmur rub or gallop Lungs: Clear to auscultation bilaterally Abdomen: Normoactive bowel sounds, soft, no tenderness, rebound, or guarding, no masses Skin: No lesions or rashes Lower extremities: No edema or erythema Pelvic exam: Deferred Neuro: Mental status: AOx4. Normal speech. Memory normal and thought process intact Cranial nerves: Pupils round and reactive to light and accommodation. Extraocular movements are intact without ptosis. Facial sensation intact. Facial muscle strength is normal and equal bilaterally. Hearing significantly louder on left side. Palate and uvula elevated symmetrically. Voice is normal. Shoulder shrug strong, and equal bilaterally. Tongue is symmetric and midline. Sensation: Intact bilaterally to pain and light touch. Motor: Good muscle tone. Strength is 5/5 bilaterally on upper and lower extremity. OB - PN: Obj Data Labs Labs: Laboratory Results - last 24 hr 10/28/22 10/28/22 06:58 07:39 WBC 5.98 RBC 4.13 Hgb 11.9 L Hct 37.4 MCV 91 MCH 29 MCHC 32 Plt Count 198 Sodium 138 Potassium 3.6 Chloride 109 Carbon Dioxide 20 Anion Gap 9 BUN 16 Creatinine 0.8 Estimated Creat Clear 90.46 Estimated GFR 97 Glucose 83 Calcium 6.8 L Magnesium 2.6 Total Bilirubin 0.3 AST 49 H ALT 71 H Alkaline Phosphatase 96 Total Protein 6.5 Albumin 3.6 Lab Acknowledgement Test Added OB - PN: A/P Delivery Assessment and Plan (1) Pre-eclampsia, severe, delivered: Status: Acute Assessment and Plan: - Increase labetalol to 300 mg TID (2) Lactating mother: Status: Acute (3) Migraines: Status: Acute Assessment and Plan: - Acute intracranial process is ruled out with CT head, MRI/MRA/MRV - Unsure the cause of tinnitus. I suspect it's related to her aura that she gets with her migraines as patient has been complaining of a migraine since admission - Will continue to monitor - Recommend referral to neurology upon discharge for further evaluation.
[2022-10-28] MEDS: ASPIRIN/ACETAMINOPHEN/CAFFEINE 1 TABLET 1 TAB PO (09:48)
[2022-10-28] MEDS: LABETALOL HCL 100 MG TABLET 300 MG PO (15:43)
[2022-10-28] MEDS: NIFEdipine 10 MG CAPSULE PO (21:10)
[2022-10-29] VITALS (7 sets, daily range): BP systolic 116–152; BP diastolic 69–91; PULSE 57–73; RESP 16–18; TEMP 36.3–36.7; O2SAT 97
[2022-10-29] MEDS: LABETALOL HCL 100 MG TABLET 300 MG PO (00:41)
[2022-10-29] MEDS: IBUPROFEN 600 MG TABLET PO (04:11)
[2022-10-29] MEDS: NIFEdipine 30 MG TAB.ER.24 PO (07:45)
[2022-10-29] MEDS: LABETALOL HCL 100 MG TABLET 400 MG PO ×2 (08:43→16:26)
--- NOTE | 2022-10-29 10:30 | PM.OBPNVD1 ---
OB - PN:Subj Subjective Date Seen: 10/29/22 Interval history: Jaclyn is a 37 year old G 5 P 5005 s/p at [facility] 10 days ago. She was readmitted here on 10/26/22 for severe preeclampsia and placed on magnesium sulfate for 24 hours. Yesterday, she had unusual auditory changes, including amplication of sound in the left ear, then tinnitus bilaterally, and some reported facial numbness. Neurologic exam was normal, and an MRI scan of the brain was normal. Overnight, her symptoms have resolved. She has had a mild headache since being on magnesium sulfate, but even that is improving. She denies any new symptoms or any visual changes. Her blood pressures have continued to be labile, despite labetalol 300 mg t.i.d.. Procardia XL 30 mg was just started this morning. ? OB - PN: Obj Exam Physical Exam: Vital signs: Temp Pulse Resp BP Pulse Ox O2 Del Method 97.4 F L 73 17 142/87 H 97 Room Air 10/29/22 07:47 10/29/22 07:47 10/29/22 07:47 10/29/22 08:40 10/29/22 00:10 10/29/22 04:00 Constitutional: Constitutional: no acute distress Routine HEENT Exam: Head: Present normal inspection Routine Respiratory Exam: Comments: Normal respiratory effort Routine Abdominal Exam: Fundus: Present firm Routine Extremities Exam: Extremities: Present normal inspection Routine Neurological Exam: Neurological: Present alert, oriented X3, moving all extremities, vision grossly intact and normal speech; Absent facial asymmetry OB - PN: A/P Delivery Assessment and Plan (1) Pre-eclampsia, severe, delivered: Status: Acute (2) Lactating mother: Status: Acute (3) Migraines: Status: Acute Plan day: 10 Comments: Will continue to observe blood pressures today to see how she responds to the addition of Procardia XL to her medication regimen. Will reassess for discharge later today day or tomorrow morning.
--- NOTE | 2022-10-31 14:56 | W.PM.OB.MED ---
DS: Providers Provider Date Seen: 10/29/22 Date of admission: 10/26/22 03:30 Primary care physician: Not a Local Provider Admitting Clinician: Maria Del Rosario Pearce MD Attending Physician on discharge: Malorie Escalona MD Date of Discharge: 10/29/22 DS: Diagnosis Discharge Diagnosis (1) Pre-eclampsia, severe, delivered: Status: Resolved (2) Lactating mother: Status: Acute (3) Migraines: Status: Acute Discharge Plan Discharge Disposition: Home, Self-Care Date of Admission: 10/26/22 03:30 Attending Physician on Admission: Maria Del Rosario Pearce Attending Provider on Discharge: Malorie Escalona Primary Care Provider: Provider,Not a Local Condition: Stable Anticipated Discharge Date/Time: 10/29/22 16:13 Discharge Medications: New nifedipine 30 mg Tablet Extended Release 24hr 30 mg PO DAILY Qty: 60 0RF Discontinued labetalol 200 mg tablet 200 mg PO .8 No Action labetalol 200 mg tablet 400 mg PO BID Patient Comments: Changed to BID on 10/30/22 Discharge Orders: Discharge Order (Routine); Ordered 10/29/22 Ordered By: Malorie Escalona Consulting provider completed their portion of the discharge: Yes Patient Education: OB High Blood Pressure DC Additional Instructions: Notify provider if BP >/= 160/110. Follow up nurse BP visit on Thursday. Follow [facility] provider in 2 weeks and 6 weeks. Activity Level: Activity as Tolerated Discharge Diet: Regular Follow Up Appointments: Provider,Not a Local [Primary Care Provider] - Forms: [employer] Info Instructions Hospital Course: Jaclyn is a 37 year old G 5 P 5005 s/p at [facility] 10 days ago. She was readmitted here on 10/26/22 for severe preeclampsia and placed on magnesium sulfate for 24 hours. On 10/28/2022, she had unusual auditory changes, including amplication of sound in the left ear, then tinnitus bilaterally, and some reported facial numbness. Neurologic exam was normal, and an MRI scan of the brain was normal. Overnight, her symptoms resolved. She did complain of a mild headache ever since starting the magnesium sulfate, but it was improving by the time of discharge. Her blood pressures were labile following discontinuation of the magnesium sulfate infusion. She was started initially on labetalol, and this was increased to 400 mg t.i.d. by the date of discharge. Procardia ER 30 mg was added once daily. Blood pressures remained under adequate control with this regimen. The patient continue to breastfeed during the hospital stay. Hospital Course Course Hospital Course: Jaclyn is a 37 year old G 5 P 5005 s/p at [facility] 10 days ago. She was readmitted here on 10/26/22 for severe preeclampsia and placed on magnesium sulfate for 24 hours. On 10/28/2022, she had unusual auditory changes, including amplication of sound in the left ear, then tinnitus bilaterally, and some reported facial numbness. Neurologic exam was normal, and an MRI scan of the brain was normal. Overnight, her symptoms resolved. She did complain of a mild headache ever since starting the magnesium sulfate, but it was improving by the time of discharge. Her blood pressures were labile following discontinuation of the magnesium sulfate infusion. She was started initially on labetalol, and this was increased to 400 mg t.i.d. by the date of discharge. Procardia ER 30 mg was added once daily. Blood pressures remained under adequate control with this regimen. The patient continue to breastfeed during the hospital stay. Labs Labs: Laboratory Tests 10/28/22 10/28/22 10/27/22 Range/Units 07:39 06:58 03:05 WBC 5.98 (4.50-11.00) K/uL RBC 4.13 (4.00-5.20) m/uL Hgb 11.9 L (12.0-16.0) gm/dL Hct 37.4 (33.0-51.0) % MCV 91 (80-100) fL MCH 29 (26-34) pg MCHC 32 (32-36) gm/dL RDW Coeff of [place] (11.5-15.5) % Plt Count 198 (140-440) K/uL Neut % (Auto) (42.0-72.0) % Lymph % (Auto) (20-44) % [place] % (Auto) (0.0-11.0) % Eos % (Auto) (0.0-7.0) % Baso % (Auto) (0.0-3.0) % Neut # (Auto) (1.7-7.0) K/uL Lymph # (Auto) (0.90-2.90) K/uL [place] # (Auto) (0.00-0.90) K/UL Eos # (Auto) (0.00-0.50) K/uL Baso # (Auto) (0.00-0.30) K/uL Abs Immat Gran (auto) (0.00-0.30) K/uL Imm/Tot Granulo (auto) % Sodium 138 (135-149) mmol/L Potassium 3.6 (3.6-5.1) mmol/L Chloride 109 (96-114) mmol/L Carbon Dioxide 20 (20-32) mmol/L Anion Gap 9 (7-15) mEq/L BUN 16 15 (5-24) mg/dL Creatinine 0.8 0.8 (0.5-1.5) mg/dL Estimated Creat Clear 90.46 92.31 Estimated GFR 97 97 ml/min Glucose 83 (60-115) mg/dL Uric Acid (2.2-8.4) mg/dL Calcium 6.8 L (8.4-10.6) mg/dL Magnesium 2.6 (1.5-2.6) mg/dL Total Bilirubin 0.3 (0.1-1.5) mg/dL Direct Bilirubin (0.0-0.5) mg/dL AST 49 H 65 H (12-35) U/L ALT 71 H 88 H (4-35) U/L Alkaline Phosphatase 96 (40-150) U/L Lactate Dehydrogenase (120-246) U/L Total Protein 6.5 (6.0-8.3) g/dL Albumin 3.6 (3.3-5.0) g/dL Urine Color (Yellow) Urine Appearance (Clear) Urine pH (5.0-8.5) Ur Specific [place] (1.000-1.030) Urine Protein (Negative) Urine Glucose (UA) (Negative) Urine Ketones (Negative) Urine Blood (Negative) Urine Nitrite (Negative) Urine Bilirubin (Negative) Urine Urobilinogen (0.2-1.0) Ur Leukocyte Esterase (Negative) Urine RBC (0-2) Urine WBC (0-5) Ur Squamous Epith Cells (None-Few) Urine Bacteria (None) Lab Acknowledgement Test Added 10/26/22 10/26/22 10/26/22 Range/Units 20:58 15:22 08:44 WBC 5.95 6.98 6.33 (4.50-11.00) K/uL RBC 4.01 4.06 4.16 (4.00-5.20) m/uL Hgb 11.6 L 11.8 L 11.9 L (12.0-16.0) gm/dL Hct 35.3 35.9 37.1 (33.0-51.0) % MCV 88 88 89 (80-100) fL MCH 29 29 29 (26-34) pg MCHC 33 33 32 (32-36) gm/dL RDW Coeff of [place] (11.5-15.5) % Plt Count 192 190 186 (140-440) K/uL Neut % (Auto) (42.0-72.0) % Lymph % (Auto) (20-44) % Du[place] % (Auto) (0.0-11.0) % Eos % (Auto) (0.0-7.0) % Baso % (Auto) (0.0-3.0) % Neut # (Auto) (1.7-7.0) K/uL Lymph # (Auto) (0.90-2.90) K/uL [place] # (Auto) (0.00-0.90) K/UL Eos # (Auto) (0.00-0.50) K/uL Baso # (Auto) (0.00-0.30) K/uL Abs Immat Gran (auto) (0.00-0.30) K/uL Imm/Tot Granulo (auto) % Sodium (135-149) mmol/L Potassium (3.6-5.1) mmol/L Chloride (96-114) mmol/L Carbon Dioxide (20-32) mmol/L Anion Gap (7-15) mEq/L BUN 15 14 13 (5-24) mg/dL Creatinine 0.8 0.8 0.7 (0.5-1.5) mg/dL Estimated Creat Clear 92.31 92.31 105.50 Estimated GFR 97 97 113 ml/min Glucose (60-115) mg/dL Uric Acid (2.2-8.4) mg/dL Calcium (8.4-10.6) mg/dL Magnesium (1.5-2.6) mg/dL Total Bilirubin (0.1-1.5) mg/dL Direct Bilirubin (0.0-0.5) mg/dL AST 69 H 74 H 80 H (12-35) U/L ALT 91 H 101 H 115 H (4-35) U/L Alkaline Phosphatase (40-150) U/L Lactate Dehydrogenase (120-246) U/L Total Protein (6.0-8.3) g/dL Albumin (3.3-5.0) g/dL Urine Color (Yellow) Urine Appearance (Clear) Urine pH (5.0-8.5) Ur Specific [place] (1.000-1.030) Urine Protein (Negative) Urine Glucose (UA) (Negative) Urine Ketones (Negative) Urine Blood (Negative) Urine Nitrite (Negative) Urine Bilirubin (Negative) Urine Urobilinogen (0.2-1.0) Ur Leukocyte Esterase (Negative) Urine RBC (0-2) Urine WBC (0-5) Ur Squamous Epith Cells (None-Few) Urine Bacteria (None) Lab Acknowledgement 10/26/22 10/26/22 Range/Units 03:05 02:35 WBC 6.53 (4.50-11.00) K/uL RBC 3.63 L (4.00-5.20) m/uL Hgb 10.6 L (12.0-16.0) gm/dL Hct 32.5 L (33.0-51.0) % MCV 90 (80-100) fL MCH 29 (26-34) pg MCHC 33 (32-36) gm/dL RDW Coeff of [place] 17.1 H (11.5-15.5) % Plt Count 149 (140-440) K/uL Neut % (Auto) 70.6 (42.0-72.0) % Lymph % (Auto) 19.9 L (20-44) % [place] % (Auto) 6.3 (0.0-11.0) % Eos % (Auto) 1.2 (0.0-7.0) % Baso % (Auto) 0.8 (0.0-3.0) % Neut # (Auto) 4.61 (1.7-7.0) K/uL Lymph # (Auto) 1.30 (0.90-2.90) K/uL [place] # (Auto) 0.40 (0.00-0.90) K/UL Eos # (Auto) 0.08 (0.00-0.50) K/uL Baso # (Auto) 0.05 (0.00-0.30) K/uL Abs Immat Gran (auto) 0.08 (0.00-0.30) K/uL Imm/Tot Granulo (auto) 1.2 % Sodium 138 (135-149) mmol/L Potassium 3.7 (3.6-5.1) mmol/L Chloride 110 (96-114) mmol/L Carbon Dioxide 22 (20-32) mmol/L Anion Gap 6 L (7-15) mEq/L BUN 16 (5-24) mg/dL Creatinine 0.8 (0.5-1.5) mg/dL Estimated Creat Clear 88.76 Estimated GFR 97 ml/min Glucose 90 (60-115) mg/dL Uric Acid 3.3 (2.2-8.4) mg/dL Calcium 8.0 L (8.4-10.6) mg/dL Magnesium 2.2 (1.5-2.6) mg/dL Total Bilirubin 0.3 (0.1-1.5) mg/dL Direct Bilirubin 0.0 (0.0-0.5) mg/dL AST 74 H (12-35) U/L ALT 102 H (4-35) U/L Alkaline Phosphatase 103 (40-150) U/L Lactate Dehydrogenase 218 (120-246) U/L Total Protein 6.1 (6.0-8.3) g/dL Albumin 3.3 (3.3-5.0) g/dL Urine Color Yellow (Yellow) Urine Appearance Cloudy A (Clear) Urine pH 7.5 (5.0-8.5) Ur Specific [place] 1.020 (1.000-1.030) Urine Protein 1+ A (Negative) Urine Glucose (UA) Negative (Negative) Urine Ketones Negative (Negative) Urine Blood 3+ A (Negative) Urine Nitrite Negative (Negative) Urine Bilirubin Negative (Negative) Urine Urobilinogen 1.0 (0.2-1.0) Ur Leukocyte Esterase Negative (Negative) Urine RBC 10-25 A (0-2) Urine WBC 0-2 (0-5) Ur Squamous Epith Cells Few (None-Few) Urine Bacteria None (None) Lab Acknowledgement OB Problem List Additional Plan (1) Pre-eclampsia, severe, delivered: Status: Resolved (2) Lactating mother: Status: Acute (3) Migraines: Status: Acute DS: Summary Discharge Examination General appearance: alert, in no apparent distress and normal affect Physical Examination findings: No focal neurologic deficits. No lower extremity edema.
== END 2022-10-29 17:00 | disposition home or self-care (01) | DRG 561 ==
LOC: ED 03:16 → OB 04:00
PROVIDERS: Advanced Practice Midwife; Admitting Provider Obstetrics & Gynecology; Emergency Provider Family Medicine; Visit Provider Obstetrics & Gynecology
DX: O14.15 Severe pre-eclampsia, complicating the puerperium (principal); G43.909 Migraine, unspecified, not intractable, without status migrainosus; Z39.1 Encounter for care and examination of lactating mother
CPT/HCPCS: 36415; 70450; 70544; 70551; 80048; 80053; 80076; 81001; 82565; 83615; 83735; 84450; 84460; 84520; 84550; 85025; 85027; 99284; A9270; J3475; J7120

== ENCOUNTER 2022-10-31 11:07 | Outpatient (CLI) | payer BC, MEDICAID, SELFPAY ==
[2022-10-31 11:45] LABS: Chloride* 106 mmol/L (96-114); Potassium* 4.8 mmol/L (3.6-5.1); Sodium* 139 mmol/L (135-149)
[2022-10-31 11:48] LABS: Anion Gap 11 mEq/L (7-15); Blood Urea Nitrogen* 30 mg/dL (5-24); Carbon Dioxide* 22 mmol/L (20-32); Creatinine* 0.9 mg/dL (0.5-1.5); Estimated Glomerular Filt Rate 84 ml/min
[2022-10-31 11:49] LABS: Calcium* 10.4 mg/dL (8.4-10.6); Glucose* 78 mg/dL (60-115)
== END 2022-10-31 11:08 | disposition home or self-care (01) ==
LOC: NFLDREF 11:10
PROVIDERS: Visit Provider Obstetrics & Gynecology
DX: R53.1 Weakness (principal)
CPT/HCPCS: 80048